=== PATIENT | male | born 1995 ===

== ENCOUNTER 2025-07-11 07:30 | Inpatient (IN) | payer OTHER ==
[~2025-07-11] VITALS: Ht 172.7 cm; Wt 90.7 kg
[2025-07-11 08:01] LABS: URINE APPEARANCE Clear; URINE BILIRRUBIN Negative (NEGATIVE); URINE BLOOD Negative; URINE COLOR Yellow; URINE GLUCOSE Negative (NEGATIVE); URINE KETONE Negative (NEGATIVE); URINE LEUKOCYTE Negative; URINE NITRATE Negative; URINE PROTEIN Negative (NEGATIVE); URINE UROBILINOGEN 0.2 E.U./dl
[2025-07-11 08:06] LABS: URINE EPITHELIAL CELLS 2.4 uL (0.0-38.8); URINE RBC 2.9 uL (0.0-20.8); URINE WBC 3.0 uL (0.0-23.2)
[2025-07-11 08:18] LABS: BASO % 1.4 % (0.1-1.2); EOS # 0.29 (0.04-0.54); EOS % 5.6 % (0.7-7.0); LYMPH # 2.15 (1.18-3.74); LYMPH % 41.7 % (19.3-53.1); MEAN PLATELET VOLUME 10.20 fl (9.4-12.4); MONO # 0.46 (0.24-0.82); MONO % 8.9 % (4.7-12.5); NEUT # 2.17 (1.56-6.13); NEUT % 42.0 % (34.0-71.1); RED CELL DISTRIBUTION WIDTH 11.8 % (11.6-14.4)
[2025-07-11 08:23] LABS: URINE BACTERIA 2.4 uL (0.0-1933); URINE CAST 0.00 uL (0.0-1.40)
[2025-07-11] MEDS ORDERED: SYNTHROID112 MCG PO (08:31)
[2025-07-11] MEDS ORDERED: INDERAL LA80 MG (08:32)
[2025-07-11] MEDS ORDERED: PEPCID AC10 MG (08:32)
[2025-07-11] MEDS ORDERED: TRAZODONE HCL50 MG PO (08:32)
[2025-07-11] MEDS ORDERED: CLONAZEPAM0.5 MG PO (08:33)
[2025-07-11 08:36] VITALS: BP 120/79
[2025-07-11 08:43] LABS: INR 1.09
[2025-07-11 08:52] LABS: ALT/SGPT 28.0 U/L (12-78); AST/SGOT 15.0 U/L (15-37); BILIRUBIN TOTAL 0.56 mg/dL (0.3-1.2); BUN CREA RATIO 29.0 (7.0-25.0); CREATININE SERUM 0.82 mg/dL (0.70-1.30); GFR 109.58; GLOBULINA 3.5 G/DL (2.4-3.5); GLUCOSE FASTING 95.0 mg/dL (65-100); OSMOLALITY SERUM 287.0 MOSM/KG (275-295)
[2025-07-18] MEDS ORDERED: AMPHETAMINE SAL10 MG (07:24)
[2025-07-18] MEDS ORDERED: DEXAMETHASONE SODIUM PHOSPHATE 4 MG/ML VIAL IM ONE (08:00)
[2025-07-18] MEDS ORDERED: ONDANSETRON HCL 2 MG/ML VIAL IV PRN (10:15)
[2025-07-18] MEDS ORDERED: ENALAPRILAT DIHYDRATE 1.25 MG/ML VIAL IV PRN (10:15)
[2025-07-18 14:40] VITALS: BP 113/70; O2SAT 97
[2025-07-18] MEDS ORDERED: TRAMADOL HCL 50 MG TABLET PO SCH (17:00)
[2025-07-18] MEDS ORDERED: ACETAMINOPHEN 500 MG GEL..CAP PO SCH (17:00)
[2025-07-18] MEDS ORDERED: DIPHENHYDRAMINE HCL 75 MG,LIDOCAINE HCL 30 ML,MAG HYDROX/ALUMINUM HYD/SIMETH 30 ML PO SCH (17:00)
[2025-07-18 17:29] VITALS: BP 108/71; O2SAT 97
[2025-07-18] MEDS ORDERED: TRAZODONE HCL 50 MG TABLET PO SCH (21:00)
[2025-07-18] MEDS ORDERED: CLONAZEPAM 0.5 MG TABLET PO SCH (21:00)
[2025-07-18] MEDS ORDERED: PANTOPRAZOLE SODIUM 40 MG/VIAL VIAL IV PUSH SCH (21:00)
[2025-07-19 00:09] VITALS: BP 105/66; O2SAT 100
[2025-07-19 07:30] VITALS: BP 117/73; O2SAT 99
[2025-07-19] MEDS ORDERED: PROPRANOLOL HCL 80 MG TABLET PO SCH (09:00)
[2025-07-20] MEDS ORDERED: LEVOTHYROXINE SODIUM 112 MCG TABLET PO SCH (06:00)
== END 2025-07-19 17:10 | disposition home or self-care (01) | DRG 627 ==
LOC: O/R 07-18 06:00 → SURH 07-18 07:30 → SURG 07-18 12:51
PROVIDERS: ADMIT Surgery; ATTEND Surgery
PROC: 00QQ0ZZ Repair Vagus Nerve, Open Approach (ICD-10-PCS; 2025-07-18)
PROC: 0GTG0ZZ Resection of Left Thyroid Gland Lobe, Open Approach (ICD-10-PCS; principal; 2025-07-18 09:45)
DX: C73 Malignant neoplasm of thyroid gland (principal)